=== PATIENT | male | born 1970 | race Caucasian/White ===

== ENCOUNTER 2017-10-02 06:41 | Day surgery (SDC) | payer BC ==
[2017-10-02] MEDS ORDERED: LIDOCAINE 2% MDV 20 ML VIAL As Ordered (06:50)
[2017-10-02] MEDS ORDERED: PROPOFOL 200 MG/20 ML VIAL As Ordered ×2 (06:50→07:58)
[2017-10-02] MEDS: NS 1,000 ML IV (07:15)
[2017-10-02] MEDS ORDERED: GLYCOPYRROLATE INJ 0.2 MG/ML 2 ML VIAL As Ordered (07:47)
== END 2017-10-02 08:38 | disposition home or self-care (01) ==
LOC: M OPP 06:41
DX: K64.9 Unspecified hemorrhoids (principal); K62.5 Hemorrhage of anus and rectum; I10 Essential (primary) hypertension; M25.569 Pain in unspecified knee; Z79.891 Long term (current) use of opiate analgesic; Z79.899 Other long term (current) drug therapy; Z88.8 Allergy status to other drugs, medicaments and biological substances; Z91.018 Allergy to other foods; Z86.010 Personal history of colon polyps; Z91.89 Other specified personal risk factors, not elsewhere classified; Z96.653 Presence of artificial knee joint, bilateral; Z83.3 Family history of diabetes mellitus; Z84.89 Family history of other specified conditions; Z86.69 Personal history of other diseases of the nervous system and sense organs; Z82.61 Family history of arthritis
CPT/HCPCS: 45378

== ENCOUNTER → 2018-01-31 | Outpatient (REF) | payer BC ==
[2018-01-31 13:11] LABS: HEMATOCRIT 46.4 % (42.0-52.0); HEMOGLOBIN 15.5 g/dl (13.5-17.5); MEAN CORPUSCULAR HEMOGLOBIN 30.6 pg (27.0-33.0); MEAN CORPUSCULAR HGB CONC 33.4 g/dl (32.0-36.5); MEAN CORPUSCULAR VOLUME 91.5 fl (80.0-96.0); PLATELET COUNT, AUTOMATED 272 10^3/uL (150-450); RED BLOOD COUNT 5.07 10^6/uL (4.30-6.10); RED CELL DISTRIBUTION WIDTH 13.1 % (11.5-14.5); WHITE BLOOD COUNT 7.3 10^3/uL (4.0-10.0)
[2018-01-31 13:28] LABS: ALBUMIN 3.8 GM/DL (3.2-5.2); ALBUMIN/GLOBULIN RATIO 1.15 (1.00-1.93); ALKALINE PHOSPHATASE 87 U/L (45-117); ALT/SGPT 71 U/L (12-78); ANION GAP 5 MEQ/L (8-16); AST/SGOT 26 U/L (7-37); BILIRUBIN,TOTAL 1.4 MG/DL (0.2-1.0); BLOOD UREA NITROGEN 12 MG/DL (7-18); CALCIUM LEVEL 8.8 MG/DL (8.5-10.1); CARBON DIOXIDE LEVEL 30 MEQ/L (21-32); CHLORIDE LEVEL 105 MEQ/L (98-107); CHOLESTEROL LEVEL 156 MG/DL (<200); CREATININE FOR GFR 1.07 MG/DL (0.70-1.30); GLOMERULAR FILTRATION RATE > 60.0 (>60); GLUCOSE, FASTING 96 MG/DL (70-100); HDL CHOLESTEROL 40 MG/DL (>40); LDL CHOLESTEROL 99 MG/DL (<100); MAGNESIUM LEVEL 2.4 MG/DL (1.8-2.4); NON-HDL-C 116 MG/DL; POTASSIUM SERUM 4.6 MEQ/L (3.5-5.1); PSA SCREENING 0.8 NG/ML (< 4.0); SODIUM LEVEL 140 MEQ/L (136-145); THYROID STIMULATING HORMONE 0.989 uIU/ML (0.358-3.740); TOTAL PROTEIN 7.1 GM/DL (6.4-8.2); TRIGLYCERIDES LEVEL 86 MG/DL (<150)
[2018-01-31 13:51] LABS: MALB URINE SIEMENS 34.7 MG/L; MAU/CREAT RATIO 12.6 MCG/MG (0.0-30.0)
== END ==
LOC: M SFHCADAM 08:01
DX: Z00.00 Encounter for general adult medical examination without abnormal findings (principal); I10 Essential (primary) hypertension
CPT/HCPCS: 83735

== ENCOUNTER → 2019-06-16 | Outpatient (CLI) | payer BC ==
[~2019-06-16] MED LIST: AMLO5TAB6; CLOB0.0526 TOP; LORA-243 PO; LOSA100T50; OXYC10TA12; TRAZ-257
--- NOTE | 2019-06-18 18:34 | SLEEPCENT ---
DATE OF PROCEDURE: 06/16/2019 ORDERED BY: ALONZO Leija Nocturnal polysomnography was performed for evaluation of sleep physiology in this patient with a history of excessive somnolence and nonrestorative sleep who has comorbidity of hypertension and obesity. 8 hours and 33 minutes of data were reviewed. There were 375.5 minutes of sleep identified. Sleep latency was prolonged at 18 minutes. Rapid eye movement (REM) latency further prolonged at 247 minutes. Sleep architecture showed fragmentation and poor progression. There were three REM cycles noted. Overall sleep efficiency 74.1%. The electrocardiogram shows a sinus rhythm with an average heart rate of 68 beats per minute. EEG showed mild coarsening in non-REM stages. No focal events were identified. There were 101 respiratory events identified of 10 seconds in duration or greater for an apnea-hypopnea index of 16.1. The events were primarily obstructive, not exclusive to sleep stage nor body posture. Arousals from respiratory events occurred 7.4 times per hour. Some scattered activity was appreciated in the limb leads, one train of 30 events. Limb movement arousal index was 5.1. IMPRESSION: Obstructive sleep apnea syndrome (G47.33). Apnea-hypopnea index 16.1. RECOMMENDATIONS: The patient should be encouraged to return to the sleep disorder center for pressure therapy. In the interim, alcohol and sedative avoidance should be practiced and caution exercised during the operation of motor vehicles.
== END ==
LOC: M SLEEP 20:00
PROVIDERS: ATTEND Nurse Practitioner Adult Health
DX: G47.33 Obstructive sleep apnea (adult) (pediatric) (principal)

== ENCOUNTER → 2019-07-17 | Outpatient (REF) | payer BC ==
[2019-07-17 13:17] LABS: BLOOD UREA NITROGEN 20 MG/DL (7-18); CALCIUM LEVEL 8.6 MG/DL (8.5-10.1); CARBON DIOXIDE LEVEL 28 MEQ/L (21-32); CHLORIDE LEVEL 103 MEQ/L (98-107); CREATININE FOR GFR 1.31 MG/DL (0.70-1.30); GLOMERULAR FILTRATION RATE > 60.0 (>60); GLUCOSE, FASTING 124 MG/DL (70-100); POTASSIUM SERUM 3.3 MEQ/L (3.5-5.1); SODIUM LEVEL 139 MEQ/L (136-145)
== END ==
LOC: M SFHCLACO 10:15 → M SFHCADAM 10:20
PROVIDERS: ATTEND Physician Assistant
DX: R60.9 Edema, unspecified (principal)

== ENCOUNTER → 2019-10-11 | Outpatient (CLI) | payer BC ==
[~2019-10-11] MED LIST changes: +AMLO1TAB24; -AMLO5TAB6
--- NOTE | 2019-11-30 07:15 | SLEEPCENT ---
DATE: 10/11/2019 ORDERED BY: Karrie Salas NP Nocturnal polysomnography was performed for the titration of pressure therapy in this patient with obstructive sleep apnea syndrome, apnea hypopnea index 16.1. For testing, the patient was fit with a ResMed Quattro full face mask of medium size, 4 cm of water pressure were applied to the circuit, and the lights were extinguished. Seven hours and 29 minutes of data were reviewed. There were 267 minutes of sleep identified. Sleep latency was short at six minutes. REM latency was delayed at 348 minutes. Sleep architecture improved on optimal pressure therapy, but significant fragmentation persisted until late in the study. There was one REM cycle noted. Overall sleep efficiency is 60.2%. The electrocardiogram showed a sinus rhythm with an average heart rate of 60 beats per minute. EEG showed normal waveforms for wake and sleep. Various pressure therapies were attempted and a brief of trial of bilevel therapy was applied. Best sleep was seen on a CPAP pressure of +9. There was some scattered limb activity appreciated in the EMG leads. Limb movement arousal index was 10.1. IMPRESSION: Obstructive sleep apnea syndrome (G47.33). RECOMMENDATION: Nightly use of pressure therapy 9 cm of water. ckd/hts MTDD
== END ==
LOC: M SLEEP 20:00
PROVIDERS: ATTEND Nurse Practitioner Adult Health
DX: G47.33 Obstructive sleep apnea (adult) (pediatric) (principal)

== ENCOUNTER 2019-11-21 20:06 | Emergency (ER) | payer BC ==
[~2019-11-21] VITALS: Ht 170.2 cm; Wt 118.3 kg
[2019-11-21 20:06] VITALS: BP 131/84
[2019-11-21] MEDS ORDERED: MORPHINE 10 MG/ML 1ML VIAL (J2270) IM ONE (21:15)
--- NOTE | 2019-11-21 21:53 | REPVR ---
PROCEDURE INFORMATION: Exam: XR Chest, 1 View Exam date and time: 11/21/2019 9:06 PM Age: 49 years old Clinical indication: Injury or trauma; Injury history: Pulled wood off trapped person; Initial encounter; Abrasion and sprain or strain; Additional info: [employer]um TECHNIQUE: Imaging protocol: XR of the chest Views: 1 view. COMPARISON: No relevant prior studies available. FINDINGS: Lungs: There is decreased inflation of the lungs. No focal infiltrates. Pleural space: Unremarkable. No pleural effusion. No pneumothorax. Heart/Mediastinum: Unremarkable. No cardiomegaly. Bones/joints: Unremarkable. IMPRESSION: Negative poor inspiratory chest. Electronically signed by: Michelet Narvaez On 11/21/2019 21:52:51 PM
--- NOTE | 2019-11-21 21:54 | REPVR ---
PROCEDURE INFORMATION: Exam: XR Right Shoulder Exam date and time: 11/21/2019 8:31 PM Age: 49 years old Clinical indication: Injury or trauma; Injury history: Pulled wood off trapped person; Initial encounter; Abrasion and sprain or strain; Shoulder; Right TECHNIQUE: Imaging protocol: XR Right shoulder. Views: 2 or more views. COMPARISON: No relevant prior studies available. FINDINGS: Bones/joints: Normal. No fracture or dislocation. Soft tissues: Normal. IMPRESSION: Negative right shoulder. Electronically signed by: Michelet Narvaez On 11/21/2019 21:54:02 PM
--- NOTE | 2019-11-21 21:56 | REPVR ---
PROCEDURE INFORMATION: Exam: XR Lumbosacral Spine, 4 or 5 Views Exam date and time: 11/21/2019 8:33 PM Age: 49 years old Clinical indication: Injury or trauma; Injury history: Pulled wood off trapped person; Initial encounter; Abrasion and sprain or strain, lumbar ligaments TECHNIQUE: Imaging protocol: XR of the lumbosacral spine, 4 or 5 views. COMPARISON: No relevant prior studies available. FINDINGS: Vertebrae: Status post pedicular fusion from L4-S1 with L5 laminectomy. There are interspace devices at L4-L5 and L5-S1. Mild interspace narrowing from L1-L4 with mild anterior spurring at L3-L4 and minimal degenerative changes at L2-L3. Mild wedge configuration of L1 with mild degenerative disc spurring at T12-L1. Soft tissues: Unremarkable. IMPRESSION: 1. Status post fusion from L4-S1 with L5 laminectomy. 2. Mild degenerative disc changes from T12-L4. 3. Mild anterior wedge configuration of L1 which appears to be chronic. 4. Otherwise negative lumbar spine. Electronically signed by: Michelet Narvaez On 11/21/2019 21:56:11 PM
== END 2019-11-21 22:09 | disposition home or self-care (01) ==
LOC: M ED 20:06
DX: S40.011A Contusion of right shoulder, initial encounter (principal); W22.8XXA Striking against or struck by other objects, initial encounter; Y92.410 Unspecified street and highway as the place of occurrence of the external cause; I10 Essential (primary) hypertension; Z79.899 Other long term (current) drug therapy; Z88.8 Allergy status to other drugs, medicaments and biological substances; Z91.018 Allergy to other foods
CPT/HCPCS: 71045; 72110; 73030; 96372; 99283; J2270

== ENCOUNTER → 2019-12-14 | Outpatient (CLI) | payer BC | LOC: M PAIN 08:11 | PROVIDERS: ATTEND Family Medicine | DX: M96.1 Postlaminectomy syndrome, not elsewhere classified (principal) ==

== ENCOUNTER → 2020-01-18 | Outpatient (CLI) | payer BC ==
--- NOTE | 2020-01-20 04:21 | ECWPNPC ---
PATIENT NAME: RADHA ENGEL : 1970 GENDER: MALE VISIT DATE: 01/18/2020 DISCHARGE DATE: 01/18/20 1517 VISIT LOCKED DATE TIME: PHYSICIAN: JASMIN DORSEY PHYSICIAN PAGER NO: ACTIVE RESOURCE: JASMIN DORSEY REASON FOR APPOINTMENT 1. FU 1 MONTH HISTORY OF PRESENT ILLNESS GENERAL: - 49-YEAR-OLD MALE IN FOR CHRONIC PAIN FOLLOW-UP. AT LAST CLINIC VISIT PATIENT WAS STARTED ON 10 MG OXYCODONE 3 TIMES A DAY AND HE ADMITS TODAY THAT THIS IS NOT COVERING HIS PAIN. HE RATES PAIN CURRENTLY AT A 7 OUT OF 10 AND DESCRIBES IT ACHING, BURNING, AND SHOOTING. FALL RISK SCREENING: SCREENING :ONE FALL WITHOUT INJURY IN THE PAST YEAR PATIENT FELL ONE MONTH AGO WITHOUT INJURY AND DID NOT SEEK MEDICAL TREATMENT. PAIN SCREENING: PATIENT HAS A COMPLAINT OF ACUTE OR CHRONIC PAIN :YES LOCATION OF PAIN:LOW BACK, KNEES BILATERAL INTENSITY OF PAIN (SCALE OF 1 TO 10):7 WHAT DOES YOUR PAIN FEEL LIKE:ACHING, BURNING, STABBING, SHOOTING PATIENT IS UNABLE TO SLEEP DUE TO THE PAIN. DURATION:INTERMITTENT PAIN IS INCREASED BY:ACTIVITIES, PROLONGED STANDING PAIN IS DECREASED BY:USE OF PAIN MEDICATIONS NURSING NOTE: -. PAIN CENTER INTAKE QUESTIONS: DO YOU HAVE A HISTORY OF MRSA? :NO DO YOU TAKE A BLOOD THINNERS? :NO DO YOU HAVE ANY BLEEDING DISORDERS? :NO ANY NEW NUMBNESS OR WEAKNESS IN YOUR LEGS OR ARMS? :YES NUMBNESS LOWER BACK THAT RADIATES DOWN RIGHT LEG. ANY PACEMAKER,DEFIBRILLATOR, OR DORSAL COLUMN STIMULATOR? :NO DO YOU HAVE ANY RASHES OR OPEN SORES? :NO ARE YOU ALLERGIC TO IV DYE? :NO ARE YOU DIABETIC? :NO ANY NEW PROBLEMS WITH YOUR MEDICATIONS? :YES PATIENT ADMITS TO NOT TAKING HIS OXYCODONE PRESCRIBED DUE TO NOT GETTING RELIEF FROM THE MEDICATION FOR HIS PAIN. STATES SOMETIMES HE TAKES 3 PILLS IN ONE SETTING WHICH IS IS MDD AND WILL STOMETIMES TAKE MORE IN A SINGLE DAY. PT WOULD LIKE TO DISCUSS GETTING A STRONGER DOSE TO PREVENT THIS. HAVE YOU RECEIVED A VACCINE IN THE PAST 30 DAYS? :NO DO YOU PLAN TO RECEIVE A VACCINE IN THE NEXT 21 DAYS? :NO DO YOU NEED ANY PRESCRIPTION? :NO DO YOU TAKE ANY IMMUNOSUPPRESSIVE MEDICATIONS? :NO IS THERE A CHANCE YOU COULD BE ? :NO ARE YOU BREAST FEEDING? :NO CURRENT MEDICATIONS TAKING LOSARTAN POTASSIUM 100 MG TABLET 1 TABLET ORALLY ONCE A DAY TAKING ACETAMINOPHEN 8 HOUR 3 TABS ONCE A DAY TAKING SUDAFED 30 MG TABLET 1-2 TABLET NEEDED ORALLY EVERY 6 HRS MDD=4 TAKING CLARITIN 10 MG TABLET 1 TABLET ORALLY ONCE A DAY TAKING CLOBETASOL PROPIONATE 0.05 % SOLUTION 1 APPLICATION TO AFFECTED AREA EXTERNALLY ONCE A DAY X 14D, OFF 14D, THEN REPEAT NEEDED TAKING HYDROCHLOROTHIAZIDE 50 MG TABLET 1 TABLET IN THE MORNING ORALLY ONCE A DAY TAKING OXYCODONE HCL 10 MG TABLET 1 TABLET ORALLY THREE TIMES DAILY NEEDED NOT-TAKING FUROSEMIDE 20 MG TABLET 1/2 TABLET ORALLY ONCE A DAY NOT-TAKING ROPINIROLE HCL 4 MG TABLET 1 TABLET 1 TO 3 HOURS BEFORE BEDTIME ORALLY ONCE A DAY NOT-TAKING NAPROXEN 250 MG TABLET 2 TABLETS ORALLY TWICE A DAY NOT-TAKING KLOR-CON M10 10 MEQ TABLET EXTENDED RELEASE 1 TABLET WITH FOOD ORALLY ONCE A DAY MEDICATION LIST REVIEWED AND RECONCILED WITH THE PATIENT PAST MEDICAL HISTORY ESSENTIAL HYPERTENSION LOW BACK PAIN HISTORY OF COLON POLYPS INSOMNIA ALLERGIES NYQUIL: WIRED - SIDE EFFECTS TYLENOL PM EXTRA STRENGTH: WIRED - SIDE EFFECTS SURGICAL HISTORY KNEE SURGERIES BOTH KNEES X 10, MENISCUS REPAIR, ACL HERNIA ADENOIDS REMOVED LUMBAR STENOSIS 06/2018 BILAT WRIST 07/16/2019 FAMILY HISTORY FATHER: , DIAGNOSED WITH HYPERTENSION, UNSPECIFIED HEART DISEASE, DIABETES, UNSPECIFIED NONPSYCHOTIC MENTAL DISORDER FOLLOWING ORGANIC BRAIN DAMAGE MOTHER: ALIVE 1 BROTHER(S) - HEALTHY. 2 SON(S) , 1 DAUGHTER(S) - HEALTHY. SOCIAL HISTORY GENERAL: TOBACCO USE ARE YOU A:FORMER SMOKER QUIT IN 07/2000 HOW LONG HAS IT BEEN SINCE YOU LAST SMOKED?> 10 YEARS LATEX QUESTIONNAIRE LATEX ALLERGY : HAVE YOU EVER DEVELOPED ANY TYPE OF REACTION AFTER HANDLING LATEX PRODUCTS SUCH RUBBER GLOVES, CONDOMS, DIAPHRAGMS, BALLOONS, SOCKS, OR UNDERWEAR?NO LATEX ALLERGY : HAVE YOU EVER DEVELOPED ANY TYPE OF REACTION DURING OR AFTER DENTAL APPOINTMENT, VAGINAL/RECTAL EXAMINATION, SURGICAL PROCEDURE, OR ANY OTHER EXPOSURE?NO LATEX RISK : HAVE YOU EVER HAD ANY DIFFICULTY BREATHING OR HIVES AFTER EATING OR HANDLING ANY FRUITS, OR VEGETABLES; SUCH KIWI, BANANAS, STONE FRUITS, OR CHESTNUTSNO LATEX RISK : DO YOU HAVE A PREVIOUS PERSONAL HISTORY OF MORE THAN NINE SURGERIES, SPINA BIFIDA, OR REPEATED CATHERIZATIONS? YES - PLEASE INDICATE : > 9 SURGERIES LATEX RISK : ARE YOU FREQUENTLY EXPOSED TO LATEX PRODUCTS IN YOUR OCCUPATION?NO DATE ASKED : 01/18/2020 BMI CARE GOAL FOLLOW-UP ABOVE NORMAL BMI FOLLOW-UPDIETARY MANAGEMENT EDUCATION, GUIDANCE, AND COUNSELING ALCOHOL SCREENING DID YOU HAVE A DRINK CONTAINING ALCOHOL IN THE PAST YEAR?NO POINTS0 INTERPRETATIONNEGATIVE RECREATIONAL DRUG USE DRUG USE?NO CAFFEINE CAFFEINE USE?YES HOW OFTEN AND HOW MUCH? PEPSI SEXUAL HX HAD SEX IN THE LAST 12 MONTHS (VAGINAL, ORAL, OR ANAL)?YES WITHWOMEN ONLY HIV / HEP-C SCREENING HIV TEST OFFERED TO PATIENT:YES DATE OFFERED:11/20/2016 TEST ACCEPTED:NO HEP-C TEST OFFERED TO PATIENT:NO REASON:PATIENT DECLINED CHURCH [id number] SCIENTOLOGIST LANGUAGE LANGUAGES SPOKEN:STATELESS EDUCATION LEVEL OF EDUCATION:COLLEGE LEARNING BARRIERS / SPECIAL NEEDS BARRIERS TO LEARNING?NO HEARING IMPAIRED?YES VISION IMPAIRED?YES COGNITIVELY IMPAIRED?NO :HEARING AIDES :CORRECTIVE LENSES READINESS TO LEARN?YES LEARNING PREFERENCES?NO LEARNING CAPABILITIES PRESENT?YES EMOTIONAL BARRIERS?NO SPECIAL DEVICES?NO SUPERVISOR STITCHING DEPARTMENT NEEDED?NO DOMESTIC VIOLENCE DO YOU FEEL SAFE IN YOUR ENVIRONMENT?YES OCCUPATION: [employer]. DIET: REGULAR. EXERCISE: WALKS. MARITAL STATUS: . OTHERS AT HOME: SPOUSE, CHILDREN. ADVANCE DIRECTIVE ADVANCE DIRECTIVE DISCUSSED WITH PATIENT:YES SENDING PATIENT HOME WITH HEALTHCARE PROXY INFORMATION TO REVIEW AND FILL OUT. HOSPITALIZATION/MAJOR DIAGNOSTIC PROCEDURE SURGERIES ABOVE REVIEW OF SYSTEMS CONSTITUTIONAL: ANY RECENT FEVER NO . CHILLS NO . WEIGHT CHANGE OF UNKNOWN REASONS NO . GASTROENTEROLOGY: NEW UNEXPLAINABLE CHANGES IN BOWEL CONTROL NO . CONSTIPATION NO . GENITOURINARY: ANY NEW CHANGE IN BLADDER CONTROL? NO . NEUROLOGY: NEW ONSET DIZZINESS OR NEUROLOGICAL CHANGES NOT MENTIONED NO . NEW NUMBNESS OR PAIN PATTERNS NOT MENTIONED AND PERTINENT TO TODAY'S VISIT NO . CARDIOLOGY: NEW CHEST PRESSURE NO . NEW CHEST PAIN NO . RESPIRATORY: UNEXPLAINABLE COUGH NO . NEW SHORTNESS OF BREATH NO . VITAL SIGNS WT 269.2 LBS, HT 67 IN, BMI 42.16 INDEX, BP 135/73 MM HG, HR 64 /MIN, RR 18 /MIN, TEMP 96.0 F, OXYGEN SAT % 94%, NA INITIALS SC 14:10. EXAMINATION GENERAL EXAMINATION: GENERALNO ACUTE DISTRESS, WELL NOURISHED AND HYDRATED. PSYCHAPPROPRIATE MOOD AND AFFECT . LUNGS:CLEAR TO AUSCULTATION BILATERALLY, NO WHEEZES, RHONCHI, RALES. HEART:NO MURMURS, REGULAR RATE AND RHYTHM. ASSESSMENTS POST LAMINECTOMY SYNDROME - M96.1 (PRIMARY) TREATMENT POST LAMINECTOMY SYNDROME INCREASE OXYCODONE HCL TABLET, 15 MG, 1 TABLET, ORALLY, THREE TIMES DAILY NEEDED, 30 DAYS, 90 NOTES: 49-YEAR-OLD MALE IN FOR CHRONIC PAIN FOLLOW-UP. GIVEN PRESENTING SYMPTOMS RECOMMEND INCREASING OXYCODONE TO 15 MG 3 TIMES A DAY WITH FOLLOW-UP IN ONE MONTH TO DETERMINE EFFICACY OF TREATMENT. PATIENT WILL TAKE 1-1/2 TABS 3 TIMES A DAY OF HIS CURRENT 10 MG DOSAGE AND THEN REQUEST A REFILL WHEN NEEDED. PATIENT HAS EXPRESSED UNDERSTANDING OF AND WAS IN AGREEMENT WITH TREATMENT PLAN. GIVEN TIME TO ASK QUESTIONS AND EXPRESS CONCERNS. , ISTOP REGISTRY REVIEWED AND DEMONSTRATES COMPLLIANCE. (REF # [id number] ) BRINGS IN MEDICATIONS WHICH IS APPROPRIATE FOR WHAT WAS DISPENSED. RECENT URINE TOXICOLOGY REVIEWED. NO UNAUTHORIZED MEDICATIONS. NO ILLICIT SUBSTANCES AND PRESCRIBED MEDICATIONS WERE PRESENT. CLINICAL NOTES: DISCUSSED CARE PLAN WITH PATIENT, PATIENT VERBALIZES UNDERSTANDING. PATIENT WAS SENT HOME WITH A HEALTHCARE PROXY INFORMATION PACKET TO FILL OUT AND RETURN. . PROCEDURE CODES FA211 ESTABILISHED PATIENT [facility] CHARGE DISPOSITION & COMMUNICATION FOLLOW UP 4 WEEKS (REASON: MEDICATION INCREASE) ELECTRONICALLY SIGNED BY MARKY GUERRA ON 01/19/2020 AT 08:58 AM EST DISCLAIMER : THIS IS A VISIT SUMMARY EXTRACTED FROM THE [email or web address] CHART. IT IS NOT A COPY OF THE [employer] PROGRESS NOTE. SELVIN
== END ==
LOC: M PAIN 14:15
PROVIDERS: ATTEND Family Medicine
DX: M96.1 Postlaminectomy syndrome, not elsewhere classified (principal); I10 Essential (primary) hypertension; G47.00 Insomnia, unspecified; Z87.891 Personal history of nicotine dependence; Z88.6 Allergy status to analgesic agent; Z88.8 Allergy status to other drugs, medicaments and biological substances; E66.01 Morbid (severe) obesity due to excess calories; Z68.41 Body mass index [BMI] 40.0-44.9, adult; Z79.899 Other long term (current) drug therapy

== ENCOUNTER → 2020-02-17 | Outpatient (CLI) | payer BC ==
--- NOTE | 2020-02-19 02:02 | ECWPNPC ---
PATIENT NAME: RADHA ENGEL : 1970 GENDER: MALE VISIT DATE: 02/17/2020 DISCHARGE DATE: 02/17/20 1008 VISIT LOCKED DATE TIME: PHYSICIAN: JASMIN DORSEY PHYSICIAN PAGER NO: ACTIVE RESOURCE: JASMIN DORSEY REASON FOR APPOINTMENT 1. MEDICATION INCREASE HISTORY OF PRESENT ILLNESS GENERAL: - 49-YEAR-OLD MALE IN FOR CHRONIC PAIN FOLLOW-UP. HE RATES HIS PAIN CURRENTLY AT AN 8 OUT OF 10 AND DESCRIBES IT ACHING AND BURNING. PATIENT'S OXYCODONE WAS INCREASED AT LAST CLINIC VISIT AND HE ADMITS TODAY THAT THIS HAS BEEN BENEFICIAL HOWEVER IT DOES NOT COVER HIS PAIN THROUGHOUT THE DAY. FALL RISK SCREENING: SCREENING :ONE FALL WITHOUT INJURY IN THE PAST YEAR PAIN SCREENING: PATIENT HAS A COMPLAINT OF ACUTE OR CHRONIC PAIN :YES LOCATION OF PAIN: WHOLE BODY INTENSITY OF PAIN (SCALE OF 1 TO 10):8 WHAT DOES YOUR PAIN FEEL LIKE:ACHING, BURNING DURATION:CONTINOUS, CONSTANT PAIN IS INCREASED BY:ACTIVITIES PAIN IS DECREASED BY:USE OF PAIN MEDICATIONS TREATMENT/MEDICATIONS USED TO MANAGE PAIN:OPIOIDS LEVEL OF RELIEF FROM PAIN TREATMENTS IN THE PAST:25% PAIN HAS INTERFERED WITH THE FOLLOWING:BATHING/DRESSING, WALKING ABILITY, HOUSEWORK, SLEEP, TRANSPORTATION, TOILETING NURSING NOTE: -. PAIN CENTER INTAKE QUESTIONS: DO YOU HAVE A HISTORY OF MRSA? :NO DO YOU TAKE A BLOOD THINNERS? :NO DO YOU HAVE ANY BLEEDING DISORDERS? :NO ANY NEW NUMBNESS OR WEAKNESS IN YOUR LEGS OR ARMS? :YES RIGHT LEG ANY PACEMAKER,DEFIBRILLATOR, OR DORSAL COLUMN STIMULATOR? :NO DO YOU HAVE ANY RASHES OR OPEN SORES? :NO ARE YOU ALLERGIC TO IV DYE? :NO ARE YOU DIABETIC? :NO ANY NEW PROBLEMS WITH YOUR MEDICATIONS? :NO HAVE YOU RECEIVED A VACCINE IN THE PAST 30 DAYS? :NO DO YOU PLAN TO RECEIVE A VACCINE IN THE NEXT 21 DAYS? :NO DO YOU NEED ANY PRESCRIPTION? :NO DO YOU TAKE ANY IMMUNOSUPPRESSIVE MEDICATIONS? :NO IS THERE A CHANCE YOU COULD BE ? :NO ARE YOU BREAST FEEDING? :NO CURRENT MEDICATIONS TAKING LOSARTAN POTASSIUM 100 MG TABLET 1 TABLET ORALLY ONCE A DAY TAKING ACETAMINOPHEN 8 HOUR 3 TABS ONCE A DAY TAKING SUDAFED 30 MG TABLET 1-2 TABLET NEEDED ORALLY EVERY 6 HRS MDD=4 TAKING CLARITIN 10 MG TABLET 1 TABLET ORALLY ONCE A DAY TAKING CLOBETASOL PROPIONATE 0.05 % SOLUTION 1 APPLICATION TO AFFECTED AREA EXTERNALLY ONCE A DAY X 14D, OFF 14D, THEN REPEAT NEEDED TAKING HYDROCHLOROTHIAZIDE 50 MG TABLET 1 TABLET IN THE MORNING ORALLY ONCE A DAY TAKING OXYCODONE HCL 15 MG TABLET 1 TABLET ORALLY THREE TIMES DAILY NEEDED NOT-TAKING FUROSEMIDE 20 MG TABLET 1/2 TABLET ORALLY ONCE A DAY NOT-TAKING ROPINIROLE HCL 4 MG TABLET 1 TABLET 1 TO 3 HOURS BEFORE BEDTIME ORALLY ONCE A DAY NOT-TAKING NAPROXEN 250 MG TABLET 2 TABLETS ORALLY TWICE A DAY NOT-TAKING KLOR-CON M10 10 MEQ TABLET EXTENDED RELEASE 1 TABLET WITH FOOD ORALLY ONCE A DAY MEDICATION LIST REVIEWED AND RECONCILED WITH THE PATIENT PAST MEDICAL HISTORY ESSENTIAL HYPERTENSION LOW BACK PAIN HISTORY OF COLON POLYPS INSOMNIA ALLERGIES NYQUIL: WIRED - SIDE EFFECTS TYLENOL PM EXTRA STRENGTH: WIRED - SIDE EFFECTS SURGICAL HISTORY KNEE SURGERIES BOTH KNEES X 10, MENISCUS REPAIR, ACL HERNIA ADENOIDS REMOVED LUMBAR STENOSIS 06/2018 BILAT WRIST 07/16/2019 FAMILY HISTORY FATHER: , DIAGNOSED WITH UNSPECIFIED HEART DISEASE, DIABETES, UNSPECIFIED NONPSYCHOTIC MENTAL DISORDER FOLLOWING ORGANIC BRAIN DAMAGE, HYPERTENSION MOTHER: ALIVE 1 BROTHER(S) - HEALTHY. 2 SON(S) , 1 DAUGHTER(S) - HEALTHY. SOCIAL HISTORY GENERAL: TOBACCO USE ARE YOU A:FORMER SMOKER QUIT IN 07/2000 HOW LONG HAS IT BEEN SINCE YOU LAST SMOKED?> 10 YEARS LATEX QUESTIONNAIRE LATEX ALLERGY : HAVE YOU EVER DEVELOPED ANY TYPE OF REACTION AFTER HANDLING LATEX PRODUCTS SUCH RUBBER GLOVES, CONDOMS, DIAPHRAGMS, BALLOONS, SOCKS, OR UNDERWEAR?NO LATEX ALLERGY : HAVE YOU EVER DEVELOPED ANY TYPE OF REACTION DURING OR AFTER DENTAL APPOINTMENT, VAGINAL/RECTAL EXAMINATION, SURGICAL PROCEDURE, OR ANY OTHER EXPOSURE?NO DATE ASKED : 01/18/2020 LATEX RISK : HAVE YOU EVER HAD ANY DIFFICULTY BREATHING OR HIVES AFTER EATING OR HANDLING ANY FRUITS, OR VEGETABLES; SUCH KIWI, BANANAS, STONE FRUITS, OR CHESTNUTSNO LATEX RISK : DO YOU HAVE A PREVIOUS PERSONAL HISTORY OF MORE THAN NINE SURGERIES, SPINA BIFIDA, OR REPEATED CATHERIZATIONS? YES - PLEASE INDICATE : > 9 SURGERIES LATEX RISK : ARE YOU FREQUENTLY EXPOSED TO LATEX PRODUCTS IN YOUR OCCUPATION?NO BMI CARE GOAL FOLLOW-UP ABOVE NORMAL BMI FOLLOW-UPDIETARY MANAGEMENT EDUCATION, GUIDANCE, AND COUNSELING ALCOHOL SCREENING DID YOU HAVE A DRINK CONTAINING ALCOHOL IN THE PAST YEAR?NO POINTS0 INTERPRETATIONNEGATIVE RECREATIONAL DRUG USE DRUG USE?NO CAFFEINE CAFFEINE USE?YES HOW OFTEN AND HOW MUCH? PEPSI SEXUAL HX HAD SEX IN THE LAST 12 MONTHS (VAGINAL, ORAL, OR ANAL)?YES WITHWOMEN ONLY HIV / HEP-C SCREENING HIV TEST OFFERED TO PATIENT:YES DATE OFFERED:11/20/2016 TEST ACCEPTED:NO HEP-C TEST OFFERED TO PATIENT:NO REASON:PATIENT DECLINED JUDAISM [id number] BUDDHIST LANGUAGE LANGUAGES SPOKEN:TAMAZIGHT EDUCATION LEVEL OF EDUCATION:COLLEGE LEARNING BARRIERS / SPECIAL NEEDS BARRIERS TO LEARNING?NO HEARING IMPAIRED?YES VISION IMPAIRED?YES COGNITIVELY IMPAIRED?NO :HEARING AIDES :CORRECTIVE LENSES READINESS TO LEARN?YES LEARNING PREFERENCES?NO LEARNING CAPABILITIES PRESENT?YES EMOTIONAL BARRIERS?NO SPECIAL DEVICES?NO CHEESE COOK NEEDED?NO DOMESTIC VIOLENCE DO YOU FEEL SAFE IN YOUR ENVIRONMENT?YES OCCUPATION: [employer]. DIET: REGULAR. EXERCISE: WALKS. MARITAL STATUS: . OTHERS AT HOME: SPOUSE, CHILDREN. ADVANCE DIRECTIVE ADVANCE DIRECTIVE DISCUSSED WITH PATIENT:YES SENDING PATIENT HOME WITH HEALTHCARE PROXY INFORMATION TO REVIEW AND FILL OUT. HOSPITALIZATION/MAJOR DIAGNOSTIC PROCEDURE SURGERIES ABOVE REVIEW OF SYSTEMS CONSTITUTIONAL: ANY RECENT FEVER NO . CHILLS NO . WEIGHT CHANGE OF UNKNOWN REASONS NO . GASTROENTEROLOGY: NEW UNEXPLAINABLE CHANGES IN BOWEL CONTROL NO . CONSTIPATION NO . GENITOURINARY: ANY NEW CHANGE IN BLADDER CONTROL? NO . NEUROLOGY: NEW ONSET DIZZINESS OR NEUROLOGICAL CHANGES NOT MENTIONED NO . NEW NUMBNESS OR PAIN PATTERNS NOT MENTIONED AND PERTINENT TO TODAY'S VISIT NO . CARDIOLOGY: NEW CHEST PRESSURE NO . NEW CHEST PAIN NO . RESPIRATORY: UNEXPLAINABLE COUGH NO . NEW SHORTNESS OF BREATH NO . VITAL SIGNS WT 268.8 LBS, HT 67 IN, BMI 42.10 INDEX, BP 134/82 MM HG, HR 68 /MIN, RR 18 /MIN, TEMP 96.8 F, OXYGEN SAT % 98%, SAFE IN ENV? (Y/N) Y, NA INITIALS AW 0915, REVIEWED BY: EM. EXAMINATION GENERAL EXAMINATION: GENERALNO ACUTE DISTRESS, WELL NOURISHED AND HYDRATED. PSYCHAPPROPRIATE MOOD AND AFFECT . LUNGS:CLEAR TO AUSCULTATION BILATERALLY, NO WHEEZES, RHONCHI, RALES. HEART:NO MURMURS, REGULAR RATE AND RHYTHM. ASSESSMENTS POST LAMINECTOMY SYNDROME - M96.1 (PRIMARY) TREATMENT POST LAMINECTOMY SYNDROME NOTES: 49-YEAR-OLD MALE IN FOR CHRONIC PAIN FOLLOW-UP. DISCUSSED ADDING A LONG-ACTING TO PATIENT'S CURRENT MEDICATION REGIMEN AND DECREASING HIS SHORT ACTING HOWEVER AT THIS TIME PATIENT WOULD PREFER TO STICK WITH HIS CURRENT DOSING. GIVEN PRESENTING SYMPTOMS RECOMMEND FOLLOW-UP IN 2 MONTHS. PATIENT HAS EXPRESSED UNDERSTANDING OF AND WAS IN AGREEMENT WITH TREATMENT PLAN. GIVEN TIME TO ASK QUESTIONS AND EXPRESS CONCERNS. , ISTOP REGISTRY REVIEWED AND DEMONSTRATES COMPLLIANCE. (REF # [id number] ) BRINGS IN MEDICATIONS WHICH IS APPROPRIATE FOR WHAT WAS DISPENSED. RECENT URINE TOXICOLOGY REVIEWED. NO UNAUTHORIZED MEDICATIONS. NO ILLICIT SUBSTANCES AND PRESCRIBED MEDICATIONS WERE PRESENT. PROCEDURE CODES FA211 ESTABILISHED PATIENT [facility] CHARGE DISPOSITION & COMMUNICATION FOLLOW UP 2 MONTHS (REASON: CHRONIC PAIN) ELECTRONICALLY SIGNED BY MARKY GUERRA ON 02/18/2020 AT 08:37 AM EST DISCLAIMER : THIS IS A VISIT SUMMARY EXTRACTED FROM THE [employer] CHART. IT IS NOT A COPY OF THE [employer] PROGRESS NOTE. SELVIN
== END ==
LOC: M PAIN 09:15
PROVIDERS: ATTEND Family Medicine
DX: M96.1 Postlaminectomy syndrome, not elsewhere classified (principal); I10 Essential (primary) hypertension; G47.00 Insomnia, unspecified; Z86.010 Personal history of colon polyps; Z87.891 Personal history of nicotine dependence; M54.5 Low back pain; Z79.891 Long term (current) use of opiate analgesic; Z79.899 Other long term (current) drug therapy; Z88.6 Allergy status to analgesic agent; Z88.8 Allergy status to other drugs, medicaments and biological substances

== ENCOUNTER → 2020-05-30 | Outpatient (CLI) | payer BC ==
--- NOTE | 2020-06-01 05:58 | ECWPNPC ---
PATIENT NAME: RADHA ENGEL : 1970 GENDER: MALE VISIT DATE: 05/30/2020 DISCHARGE DATE: 05/30/20 1046 VISIT LOCKED DATE TIME: PHYSICIAN: JASMIN DORSEY PHYSICIAN PAGER NO: ACTIVE RESOURCE: JASMIN DORSEY REASON FOR APPOINTMENT 1. CHRONIC PAIN HISTORY OF PRESENT ILLNESS GENERAL: - 49-YEAR-OLD MALE IN FOR CHRONIC PAIN FOLLOW-UP. HE RATES HIS PAIN CURRENTLY AT AN 8 OUT OF 10 AND DESCRIBES IT ACHING, BURNING, CONTINUOUS, INTERMITTENT, SHARP, THROBBING, AND SORE. PATIENT FEELS HIS MEDICATIONS ARE HELPFUL BUT DOES ADMIT TO INCREASED PAIN AT TIMES. HE WOULD LIKE TO DISCUSS REFERRAL FOR POTENTIAL MEDICAL MARIJUANA. FALL RISK SCREENING: SCREENING : NO FALLS REPORTED IN THE LAST YEAR. PAIN SCREENING: PATIENT HAS A COMPLAINT OF ACUTE OR CHRONIC PAIN :YES LOCATION OF PAIN:LOW BACK INTENSITY OF PAIN (SCALE OF 1 TO 10):8 WHAT DOES YOUR PAIN FEEL LIKE:ACHING, BURNING, CONTINOUS, INTERMITTENT, SHARP, THROBBING, SORE DURATION:CONTINOUS, CONSTANT, STEADY, AWAKENS FROM SLEEP PAIN IS INCREASED BY:ACTIVITIES, PROLONGED STANDING PAIN IS DECREASED BY:OTHERS REPOSITIONING NURSING NOTE: -. PAIN CENTER INTAKE QUESTIONS: DO YOU HAVE A HISTORY OF MRSA? :NO DO YOU TAKE A BLOOD THINNERS? :NO DO YOU HAVE ANY BLEEDING DISORDERS? :NO ANY NEW NUMBNESS OR WEAKNESS IN YOUR LEGS OR ARMS? :YES INCREASED NUMBNESS AND WEAKNESS IN BOTH LEGS ANY PACEMAKER,DEFIBRILLATOR, OR DORSAL COLUMN STIMULATOR? :NO DO YOU HAVE ANY RASHES OR OPEN SORES? :NO ARE YOU ALLERGIC TO IV DYE? :NO ARE YOU DIABETIC? :NO ANY NEW PROBLEMS WITH YOUR MEDICATIONS? :NO HAVE YOU RECEIVED A VACCINE IN THE PAST 30 DAYS? :NO DO YOU PLAN TO RECEIVE A VACCINE IN THE NEXT 21 DAYS? :NO DO YOU NEED ANY PRESCRIPTION? :NO WOULD LIKE TO DISCUSS DO YOU TAKE ANY IMMUNOSUPPRESSIVE MEDICATIONS? :NO DO YOU HAVE ANY KIDNEY OR LIVER DISEASE? :NO IS THERE A CHANCE YOU COULD BE ? :NO ARE YOU BREAST FEEDING? :NO CURRENT MEDICATIONS TAKING ACETAMINOPHEN 8 HOUR 3 TABS ONCE A DAY TAKING SUDAFED 30 MG TABLET 1-2 TABLET NEEDED ORALLY EVERY 6 HRS MDD=4 TAKING CLARITIN 10 MG TABLET 1 TABLET ORALLY ONCE A DAY TAKING CLOBETASOL PROPIONATE 0.05 % SOLUTION 1 APPLICATION TO AFFECTED AREA EXTERNALLY ONCE A DAY X 14D, OFF 14D, THEN REPEAT NEEDED TAKING HYDROCHLOROTHIAZIDE 50 MG TABLET 1 TABLET IN THE MORNING ORALLY ONCE A DAY TAKING LOSARTAN POTASSIUM 100 MG TABLET TAKE 1 TABLET ONCE DAILY TAKING OXYCODONE HCL 15 MG TABLET 1 TABLET ORALLY THREE TIMES DAILY NEEDED TAKING KEFLEX 250 MG CAPSULE 1 CAPSULE ORALLY EVERY 6 HRS UNKNOWN FUROSEMIDE 20 MG TABLET 1/2 TABLET ORALLY ONCE A DAY UNKNOWN ROPINIROLE HCL 4 MG TABLET 1 TABLET 1 TO 3 HOURS BEFORE BEDTIME ORALLY ONCE A DAY UNKNOWN NAPROXEN 250 MG TABLET 2 TABLETS ORALLY TWICE A DAY UNKNOWN KLOR-CON M10 10 MEQ TABLET EXTENDED RELEASE 1 TABLET WITH FOOD ORALLY ONCE A DAY MEDICATION LIST REVIEWED AND RECONCILED WITH THE PATIENT PAST MEDICAL HISTORY ESSENTIAL HYPERTENSION LOW BACK PAIN HISTORY OF COLON POLYPS INSOMNIA ALLERGIES NYQUIL: WIRED - SIDE EFFECTS TYLENOL PM EXTRA STRENGTH: WIRED - SIDE EFFECTS KETOROLAC TROMETHAMINE: RASH SURGICAL HISTORY KNEE SURGERIES BOTH KNEES X 10, MENISCUS REPAIR, ACL HERNIA ADENOIDS REMOVED LUMBAR STENOSIS 06/2018 BILAT WRIST 07/16/2019 C5-C7 FUSED 02/28/2021 FLUID REMOVED FROM THROAT 03/18/2020 L2-L4 FUSED 05/06/2020 FLUID REMOVED FROM LOW BACK 05/16/2020 SOCIAL HISTORY GENERAL: TOBACCO USE ARE YOU A:FORMER SMOKER QUIT IN 07/2000 HOW LONG HAS IT BEEN SINCE YOU LAST SMOKED?> 10 YEARS LATEX QUESTIONNAIRE LATEX ALLERGY : HAVE YOU EVER DEVELOPED ANY TYPE OF REACTION AFTER HANDLING LATEX PRODUCTS SUCH RUBBER GLOVES, CONDOMS, DIAPHRAGMS, BALLOONS, SOCKS, OR UNDERWEAR?NO LATEX ALLERGY : HAVE YOU EVER DEVELOPED ANY TYPE OF REACTION DURING OR AFTER DENTAL APPOINTMENT, VAGINAL/RECTAL EXAMINATION, SURGICAL PROCEDURE, OR ANY OTHER EXPOSURE?NO LATEX RISK : HAVE YOU EVER HAD ANY DIFFICULTY BREATHING OR HIVES AFTER EATING OR HANDLING ANY FRUITS, OR VEGETABLES; SUCH KIWI, BANANAS, STONE FRUITS, OR CHESTNUTSNO LATEX RISK : DO YOU HAVE A PREVIOUS PERSONAL HISTORY OF MORE THAN NINE SURGERIES, SPINA BIFIDA, OR REPEATED CATHERIZATIONS? YES - PLEASE INDICATE : > 9 SURGERIES LATEX RISK : ARE YOU FREQUENTLY EXPOSED TO LATEX PRODUCTS IN YOUR OCCUPATION?NO DATE ASKED : 05/30/2020 ALCOHOL USE: NO. BMI CARE GOAL FOLLOW-UP ABOVE NORMAL BMI FOLLOW-UPDIETARY MANAGEMENT EDUCATION, GUIDANCE, AND COUNSELING ALCOHOL SCREENING DID YOU HAVE A DRINK CONTAINING ALCOHOL IN THE PAST YEAR?NO POINTS0 INTERPRETATIONNEGATIVE RECREATIONAL DRUG USE DRUG USE?NO CAFFEINE CAFFEINE USE?YES HOW OFTEN AND HOW MUCH? PEPSI SEXUAL HX HAD SEX IN THE LAST 12 MONTHS (VAGINAL, ORAL, OR ANAL)?YES WITHWOMEN ONLY HIV / HEP-C SCREENING HIV TEST OFFERED TO PATIENT:YES DATE OFFERED:11/20/2016 TEST ACCEPTED:NO HEP-C TEST OFFERED TO PATIENT:NO REASON:PATIENT DECLINED BUDDHIST [id number] RAST[employer]I LANGUAGE LANGUAGES SPOKEN:THAI EDUCATION LEVEL OF EDUCATION:COLLEGE LEARNING BARRIERS / SPECIAL NEEDS CHANGE FROM LAST VISIT?YES BARRIERS TO LEARNING?NO HEARING IMPAIRED?YES :HEARING AIDES VISION IMPAIRED?YES :CORRECTIVE LENSES COGNITIVELY IMPAIRED?NO READINESS TO LEARN?YES LEARNING PREFERENCES?NO LEARNING CAPABILITIES PRESENT?YES EMOTIONAL BARRIERS?NO SPECIAL DEVICES?YES :CANE 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 DIET: REGULAR. EXERCISE: WALKS. MARITAL STATUS: . OTHERS AT HOME: SPOUSE, CHILDREN. ADVANCE DIRECTIVE ADVANCE DIRECTIVE DISCUSSED WITH PATIENT:YES SENDING PATIENT HOME WITH HEALTHCARE PROXY INFORMATION TO REVIEW AND FILL OUT. HOSPITALIZATION/MAJOR DIAGNOSTIC PROCEDURE SURGERIES ABOVE REVIEW OF SYSTEMS CONSTITUTIONAL: ANY RECENT FEVER NO . CHILLS NO . WEIGHT CHANGE OF UNKNOWN REASONS NO . GASTROENTEROLOGY: NEW UNEXPLAINABLE CHANGES IN BOWEL CONTROL NO . CONSTIPATION NO . GENITOURINARY: ANY NEW CHANGE IN BLADDER CONTROL? NO . NEUROLOGY: NEW ONSET DIZZINESS OR NEUROLOGICAL CHANGES NOT MENTIONED NO . NEW NUMBNESS OR PAIN PATTERNS NOT MENTIONED AND PERTINENT TO TODAY'S VISIT NO . CARDIOLOGY: NEW CHEST PRESSURE NO . PATIENT DENIES NO . RESPIRATORY: UNEXPLAINABLE COUGH NO . NEW SHORTNESS OF BREATH NO . VITAL SIGNS WT 283.6 LBS, HT 67 IN, BMI 44.41 INDEX, BP 142/85 MM HG, HR 82 /MIN, RR 18 /MIN, TEMP 97.6 F, OXYGEN SAT % 96%, SAFE IN ENV? (Y/N) YES, NA INITIALS SC 10:04, REVIEWED BY: TRISHA GONSALES MA. EXAMINATION GENERAL EXAMINATION: GENERALNO ACUTE DISTRESS, WELL NOURISHED AND HYDRATED. PSYCHAPPROPRIATE MOOD AND AFFECT . LUNGS:CLEAR TO AUSCULTATION BILATERALLY, NO WHEEZES, RHONCHI, RALES. HEART:NO MURMURS, REGULAR RATE AND RHYTHM. ASSESSMENTS POST LAMINECTOMY SYNDROME - M96.1 (PRIMARY) TREATMENT POST LAMINECTOMY SYNDROME NOTES: 49-YEAR-OLD MALE IN FOR CHRONIC PAIN FOLLOW-UP. GIVEN PRESENTING SYMPTOMS RECOMMEND REFERRAL FOR MEDICAL MARIJUANA WITH FOLLOW-UP IN 3 MONTHS. PATIENT WAS INFORMED THAT SHOULD HE START MEDICAL MARIJUANA HE WILL BE TAPERED OFF HIS OPIATES AND HE WAS AMENABLE TO THIS. PATIENT EXPRESSED UNDERSTANDING OF AND WAS IN AGREEMENT WITH TREATMENT PLAN. GIVEN TIME TO ASK QUESTIONS AND EXPRESS CONCERNS. , ISTOP REGISTRY REVIEWED AND DEMONSTRATES COMPLLIANCE. (REF # [id number] ) BRINGS IN MEDICATIONS WHICH IS APPROPRIATE FOR WHAT WAS DISPENSED. RECENT URINE TOXICOLOGY REVIEWED. NO UNAUTHORIZED MEDICATIONS. NO ILLICIT SUBSTANCES AND PRESCRIBED MEDICATIONS WERE PRESENT. REFERRAL TO:OF [facility] [place] [facility]ARE[facility]KNOWTammy REASON:MEDICAL MARIJUANA PROCEDURE CODES [id number] ESTABILISHED PATIENT [facility] FACILITY CHARGE DISPOSITION & COMMUNICATION FOLLOW UP 3 MONTHS (REASON: BACK PAIN) ELECTRONICALLY SIGNED BY MARKY GUERRA ON 05/31/2020 AT 08:52 AM EDT DISCLAIMER : THIS IS A VISIT SUMMARY EXTRACTED FROM THE [employer] CHART. IT IS NOT A COPY OF THE [employer] PROGRESS NOTE. SELVIN
== END ==
LOC: M PAIN 10:15
PROVIDERS: ATTEND Family Medicine
DX: M96.1 Postlaminectomy syndrome, not elsewhere classified (principal); I10 Essential (primary) hypertension; G47.00 Insomnia, unspecified; Z87.891 Personal history of nicotine dependence; Z79.891 Long term (current) use of opiate analgesic; Z79.899 Other long term (current) drug therapy; Z88.6 Allergy status to analgesic agent; Z88.8 Allergy status to other drugs, medicaments and biological substances